=== PATIENT | male | born 1975 ===

== ENCOUNTER 2018-10-23 02:36 | Emergency (ER) | payer SELFPAY ==
[2018-10-23 03:01] VITALS: BMI 34.3
[2018-10-23 03:03] VITALS: RESP 18; TEMP 97.8
[2018-10-23] MEDS ORDERED: Tdap Vaccine 0.5 ml Vial (10-64 yrs) IM ONE ×2 (03:12→03:30)
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
[2018-10-23 06:15] VITALS: BP 127/75; PULSE 92
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
[2018-10-23 22:16] VITALS: O2SAT 96
== END 2018-10-23 06:16 | disposition home or self-care (01) ==
LOC: H.ER 02:36
DX: F10.129 Alcohol abuse with intoxication, unspecified (principal); S09.90XA Unspecified injury of head, initial encounter; S02.31XA Fracture of orbital floor, right side, initial encounter for closed fracture; W01.0XXA Fall on same level from slipping, tripping and stumbling without subsequent striking against object, initial encounter; Y92.89 Other specified places as the place of occurrence of the external cause
CPT/HCPCS: 70450; 70486; 72125; 82948; 90471; 90715; 99284; G0480